=== PATIENT | female | born 1955 | race Caucasian/White ===

== ENCOUNTER 2017-03-30 07:05 | Emergency (ER) | payer OTHER ==
[2017-03-30 07:21] VITALS: BP 117/78
--- NOTE | 2017-03-30 07:33 | UC ---
Knee Pain HPI - HPI Summary HPI Summary: 61 yo female fell and injured her right knee on 03/15 abrasion/large hematoma has been able to wt bear since the injury this occurred in [place] Just flew home last pm no f/c - History of Current Complaint Chief Complaint: UCTrauma Stated Complaint: KNEE INJURY Time Seen by Provider: 03/30/17 07:20 Hx Obtained From: Patient Onset/Duration: Sudden Onset, Lasting Weeks Severity Initially: Severe Severity Currently: Mild Pain Intensity: 4 Pain Scale Used: 0-10 Numeric Character: Dull Alleviating Factor(s): Rest Associated Signs And Symptoms: Positive: Swelling, Bruising. Negative: Redness , Fever, Weakness, Numbness, Tingling Able to Bear Weight: Yes - Risk Factors Septic Arthritis Risk Factor: Negative Gout Risk Factor: Negative - Allergies/Home Medications Allergies/Adverse Reactions: Allergies Allergy/AdvReac Type Severity Reaction Status Date / Time Aspirin Allergy Dizziness Verified 03/30/17 07:12 Ciprofloxacin Allergy Hives Verified 03/30/17 07:12 Home Medications: Home Medications Ibuprofen [Ibuprofen 200 MG] 200 mg PO PRN 03/30/17 [History] PMH/Surg Hx/FS Hx/Imm Hx Previously Healthy: Yes - Surgical History Surgical History: None - Family History Known Family History: Positive: Hypertension - Social History Alcohol Use: Occasionally Substance Use Type: None Smoking Status (MU): Never Smoked Tobacco Review of Systems Constitutional: Negative Skin: Bruising Eyes: Negative ENT: Negative Respiratory: Negative Cardiovascular: Negative Gastrointestinal: Negative Genitourinary: Negative Motor: Negative Neurovascular: Negative Musculoskeletal: Arthralgia Neurological: Negative Psychological: Negative All Other Systems Reviewed And Are Negative: Yes Physical Exam Triage Information Reviewed: Yes Appearance: Well-Appearing, No Pain Distress, Well-Nourished Vital Signs: Initial Vital Signs Temp 98.9 F 03/30/17 07:13 Pulse 76 03/30/17 07:13 Resp 18 03/30/17 07:13 BP 117/78 03/30/17 07:13 Pulse Ox 97 03/30/17 07:13 Vital Signs Reviewed: Yes Eyes: Positive: Conjunctiva Clear ENT: Positive: Hearing grossly normal. Negative: Nasal congestion, Nasal drainage, Tonsillar exudate, Trismus, Muffled/hoarse voice Neck: Positive: Supple, Nontender Respiratory: Positive: Lungs clear, Normal breath sounds, No respiratory distress, No accessory muscle use Cardiovascular: Positive: RRR, No Murmur, Pulses Normal Musculoskeletal: Positive: Other: - see image Knee Pain Course/Dx - Differential Dx/Diagnosis Provider Diagnoses: right knee contusion and pre patellar bursitis Discharge - Discharge Plan Condition: Stable Disposition: HOME Patient Education Materials: Knee Bursitis (ED) Referrals: Kuldeep Ramirez MD [Medical Doctor] - As Soon As Possible Additional Instructions: you have a collection of fluid in your pre patellar bursa if the knee becomes red and hot to touch get rechecked DEVON advil as needed for pain Images Front/Back of Body, Lg ([place]): 1 - no joint effusion, prepatellar effusion (not red or hot), ecchymosis extending distally
--- NOTE | 2017-03-30 08:22 | RAD ---
Indication: RIGHT knee pain post fall 2 weeks ago. Anterior pain. Comparison: None. Technique: RIGHT knee: AP, tunnel, lateral, sunrise views. REPORT AND IMPRESSION: Negative for joint effusion, fracture, or malalignment. Preserved joint spaces. Anterior soft tissue swelling superficial to the patella and patellar tendon.
== END 2017-03-30 08:20 | disposition home or self-care (01) ==
LOC: UCEAST 07:05
DX: S80.01XA Contusion of right knee, initial encounter (principal); W19.XXXA Unspecified fall, initial encounter; Y93.9 Activity, unspecified; Y92.9 Unspecified place or not applicable; Y99.9 Unspecified external cause status; M70.51 Other bursitis of knee, right knee
CPT/HCPCS: 99211; G0463

== ENCOUNTER 2019-02-12 12:19 | Emergency (ER) | payer OTHER ==
[2019-02-12 13:35] VITALS: BP 133/86
[2019-02-12] MEDS ORDERED: Ondansetron ODT TAB* 4 MG PO ONE (13:41)
--- NOTE | 2019-02-12 13:48 | UC ---
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 SHE STATES HER RIGHT EYE WAS STILL DILATED AND SAYS SHE HAD TROUBLE WITH DEPTH PERCEPTION. THIS MORNING SHE WENT TO [employer] [facility] AND SUDDENLY FELT DIZZY AND NAUSEATED SO CAME IN HERE FOR EVALUATION. - History Of Current Complaint Chief Complaint: UCHeadInjury Stated Complaint: HEAD INJURY Time Seen by Provider: 02/12/19 13:18 Hx Obtained From: Patient Onset/Duration: Sudden Onset, Lasting Hours, Still Present Severity Currently: Moderate Severity Initially: Moderate Pain Intensity: 6 Pain Scale Used: 0-10 Numeric Character: Dull Aggravating Factor(s): Nothing Alleviating Factor(s): Nothing Associated Signs And Symptoms: Positive: Nausea. Negative: LOC (Time In Secs./ Mins/Hrs), Confusion, Memory Loss, Neck Pain - Allergies/Home Medications Allergies/Adverse Reactions: Allergies Allergy/AdvReac Type Severity Reaction Status Date / Time aspirin Allergy Dizziness Verified 02/12/19 13:25 ciprofloxacin Allergy Hives Verified 02/12/19 13:25 fentanyl Allergy Vomiting Verified 02/12/19 13:25 PMH/Surg Hx/FS Hx/Imm Hx - Additional Past Medical History Additional PMH: MULTIPLE RIGHT EYE SURGERIES - Surgical History Surgical History: Yes Surgery Procedure, Year, and Place: eye surgeries multiple - Family History Known Family History: Positive: Hypertension - Social History Alcohol Use: Daily Alcohol Amount: 1/2 drink/day Substance Use Type: None Smoking Status (MU): Never Smoked Tobacco Review of Systems All Other Systems Reviewed And Are Negative: Yes Constitutional: Positive: Negative Eyes: Positive: Photophobia Respiratory: Positive: Negative Cardiovascular: Positive: Negative Gastrointestinal: Positive: Nausea Neurological: Positive: Headache, Other - DIZZY Physical Exam Triage Information Reviewed: Yes Appearance: Well-Appearing, No Pain Distress, Well-Nourished Vital Signs: Initial Vital Signs Temp 96.9 F 02/12/19 13:11 Pulse 77 02/12/19 13:11 Resp 18 02/12/19 13:11 BP 133/86 02/12/19 13:11 Pulse Ox 98 02/12/19 13:11 Vital Signs Reviewed: Yes Eyes: Positive: Conjunctiva Clear, Other: - PUPILS ROUND AND REACTIVE TO LIGHT BUT RIGHT SLIGHTLY LESS REACTIVE THAN LEFT, EOMI ENT: Positive: Hearing grossly normal Neck: Positive: Supple Respiratory: Positive: No respiratory distress, No accessory muscle use Cardiovascular: Positive: Pulses Normal Abdomen Description: Positive: Soft Musculoskeletal: Positive: No Edema Neurological: Positive: Alert, Other: - CN II-XII GROSSLY INTACT BILATERALLY. RAPID ALTERNATING MOVEMENTS INTACT. NEG PRONATOR DRIFT. NEG ROMBERG. 5/5 STRENGTH. HEEL TO PEDRO INTACT BILATERALLY. TANDEM GAIT INTACT BUT SLIGHTLY UNSTEADY. FINGER TO NOSE INTACT. Psychological: Positive: Age Appropriate Behavior Skin: Negative: Rashes Diagnostics - Radiology CT HEAD W/O CONTRAST Radiology Interpretation Completed By: Radiologist Summary of Radiographic Findings: NO ACUTE INTRACRANIAL PATHOLOGY. Head Injury Course/Dx - Course Course Of Treatment: PATIENT WITH PERSISTENT HEADACHE AFTER STRIKING HER FOREHEAD ON A CABINET ONE WEEK AGO WHILE HER EYES WERE DILATED STATUS POST EYE SURGERY. SYMPTOMS GOT SLIGHTLY WORSE WITH NAUSEA AND DIZZINESS TODAY AFTER ATTEMPTING A [employer]. CT HEAD TODAY UNREMARKABLE. HAVE ADVISED PATIENT TO KEEP HER OPHTHALMOLOGY FOLLOW-UP APPOINTMENTS. SHE WILL GO TO THE ER WITHOUT FAIL IF HER SYMPTOMS WORSEN. IT'S POSSIBLE SHE SUSTAINED A MILD CONCUSSION. INFORMATION GIVEN FOR CONCUSSION CLINIC IN [place] AND [facility]. - Differential Dx/Diagnosis Provider Diagnosis: Head injury due to trauma Discharge - Sign-Out/Discharge Documenting (check all that apply): Patient Departure All imaging exams completed and their final reports reviewed: Yes - Discharge Plan Condition: Stable Disposition: HOME Patient Education Materials: Head Injury (ED) Referrals: Kelin Pope MD [Primary Care Provider] - If Needed Additional Instructions: CT HEAD TODAY UNREMARKABLE. LIMIT SCREEN TIME AND AVOID ACTIVITIES THAT COULD RESULT IN ADDITIONAL HEAD INJURY. YOU NEED BOTH PHYSICAL AND COGNITIVE REST TO EXPEDITE RECOVERY. FOLLOW-UP WITH PCP IF SYMPTOMS ARE PERSISTENT. GO TO THE ED WITHOUT FAIL IF YOU DEVELOP UNEQUAL PUPILS, VISUAL DISTURBANCE, GAIT INSTABILITY, SPEECH DIFFICULTY, NAUSEA/VOMITING, WORSENING HEADACHE, DIZZINESS, CONFUSION, WEAKNESS OR ANY OTHER CONCERNING SYMPTOMS. KEEP YOUR OPHTHALMOLOGY FOLLOW-UP APPTS. [facility] [phone] (M-F 8AM-4PM) [email or web address] (FOR HELP, INFO OR TO CONNECT WITH A SUPPORT GROUP) - Billing Disposition and Condition Condition: STABLE Disposition: Home
== END 2019-02-12 14:34 | disposition home or self-care (01) ==
LOC: UCEAST 12:19
DX: S09.90XA Unspecified injury of head, initial encounter (principal); R51 Headache; R11.0 Nausea; R42 Dizziness and giddiness; W22.09XA Striking against other stationary object, initial encounter; Y92.9 Unspecified place or not applicable; Z88.6 Allergy status to analgesic agent; Z88.1 Allergy status to other antibiotic agents; Z88.5 Allergy status to narcotic agent
CPT/HCPCS: 70450; 99212; A9270-GY; G0463